=== PATIENT | male | born 1965 | race American Indian/Alaskan Native ===

== ENCOUNTER 2017-11-13 14:37 | Emergency (ER) | payer MEDICAID, OTHER ==
[2017-11-13 14:38] VITALS: BMI 29.5
[2017-11-13 14:57] VITALS: RESP 18; TEMP 99.6
[2017-11-13] MEDS ORDERED: Nitroglycerin 2% Ointment Foilpak UD TOP STA (15:07)
--- NOTE | 2017-11-13 15:12 | ED PDOC ---
Arrival/HPI - General Chief Complaint: Chest Pain Time Seen by Provider: 11/13/17 14:53 Historian: Patient - History of Present Illness Narrative History of Present Illness (Text): 11/13/17 15:09 pt p/w ~ 3 days onset of waxing/waning chest tightness/pain, upper chest all/ substernal chest region; non-radiating pain, at most pain is 7/10; + sob/ wheezing, + generalized weakness, + fever/chills/sweats, no palpitations, + lightheadedness/dizziness, + general limb weakness/heaviness, no abd pain, no n/ v, no numbness/tingling, no urinary/bowel changes, no fall/trauma/travel, no sick contact; pt denied rashes, no gross bleeding, no other complaints; pt is here for further eval pt denied slurr speech, pt denied vision changes pt is right hand dominate PCP: NONE Time/Duration: < week (3days) Symptom Onset: Sudden Symptom Course: Worsening Severity Level: Severe Activities at Onset: Rest Context: Home Past Medical History - Provider Review Nursing Documentation Reviewed: Yes - Travel History Have you recently traveled outside [place] w/in the past 3 mons?: No - Past History Past History: No Previous - Infectious Disease Hx of Infectious Diseases: None - Past Medical History Past Medical History: No Previous - Psychiatric Hx Depression: Yes Hx Substance Use: No - Past Surgical History Past Surgical History: No Previous - Suicidal Assessment Feels Threatened In Home Enviroment: No Family/Social History - Physician Review Nursing Documentation Reviewed: Yes Family/Social History: No Known Family HX Smoking Status: Never Smoked Hx Alcohol Use: No Hx Substance Use: No Hx Substance Use Treatment: No Allergies/Home Meds Allergies/Adverse Reactions: Allergies No Known Allergies Allergy (Verified 11/13/17 14:56) Home Medications: Home Meds Medication Instructions Recorded Confirmed No Known Home Med 11/13/17 11/13/17 Review of Systems - Review of Systems Constitutional: Fatigue, Fevers, Night Sweats Eyes: Normal ENT: Normal Respiratory: SOB Cardiovascular: Chest Pain Gastrointestinal: Normal Genitourinary Male: Normal Musculoskeletal: Normal Skin: Normal Neurological: Dizziness Endocrine: Normal Hemo/Lymphatic: Normal Psychiatric: Normal Physical Exam Vital Signs Reviewed: Yes Vital Signs Temp Pulse Resp BP Pulse Ox 11/13/17 16:23 97 H 18 143/84 97 11/13/17 14:52 99.6 F 83 18 138/55 L 96 Temperature: Afebrile Blood Pressure: Normal Pulse: Regular Respiratory Rate: Normal Appearance: Positive for: Well-Appearing, Non-Toxic, Other (mildly uncomfortable , alert/awake, GCS = 15, oriented x 3, cooperative, NAD, respond appropriately to questions) Pain Distress: None Mental Status: Positive for: Alert and Oriented X 3 - Systems Exam Head: Present: Atraumatic, Normocephalic Pupils: Present: PERRL, Other (visual field intact b/l, no nystagmus, no photophobia, sclera anicteric) Extroacular Muscles: Present: EOMI Conjunctiva: Present: Normal Ears: Present: Normal Mouth: Present: Moist Mucous Membranes, Normal Teeth, Other (no drooling/stridor , no exudate/lesions, no dysphonia) Pharnyx: Present: Normal Nose (External): Present: Atraumatic Nose (Internal): Present: Normal Inspection Neck: Present: Normal Range of Motion, Trachea Midline, Other (intact ROM, no midline tenderness, no meningeal signs, no midline tenderness, no step off). No : MIDLINE TENDERNESS Respiratory/Chest: Present: Clear to Auscultation, Good Air Exchange, Other ( CTA b/l, no w/r/r, no accessory muscle use noted, no tachypenia, no belly retractions) Cardiovascular: Present: Regular Rate and Rhythm, Normal S1, S2. No: Murmurs Abdomen: Present: Normal Bowel Sounds, Other (well nourished male, no focal tenderness, no lang's sign, no mcburney's point tenderness, no masses/rebound/ guarding/rigidity) Back: Present: Normal Inspection. No: CVA Tenderness, Midline Tenderness Upper Extremity: Present: Normal Inspection, Normal ROM, NORMAL PULSES, Neurovascularly Intact, Capillary Refill < 2s. No: Edema Lower Extremity: Present: Normal Inspection, NORMAL PULSES, Normal ROM, Neurovascularly Intact, Capillary Refill < 2 s Neurological: Present: GCS=15, CN II-XII Intact, Speech Normal Skin: Present: Warm, Normal Color, Other (Cap refill ~ 1sec, no ulcerations, no petechiae, no rashes) Psychiatric: Present: Alert, Oriented x 3 Medical Decision Making ED Course and Treatment: 1500 Impression: chest pain, r/o acs i have consider all the differential diagnosis regarding pt's chief medical complaints/clinical findings, including but are not limited to: chest pain, r/o acs A/P: chest pain, r/o acs; general weakness - labs - iv - acs eval - xray - observe - supportive care 11/13/2017 16:10 Chest X-ray IMPRESSION: No active pulmonary disease. Dictator: Sejal Rodriguez MD 11/13/17 16:32 pt is currently comfortable given pt's symptoms/complaints, will recommend patient for admission for r/o acs pt however cant wait for the rest of his labs to return and does not want to stay as per my recommendation pt states he has at home chores he needs to attend to pt states he will come back however pt currently would like to leave AMA pt is aware that by leaving against medical advice potential life-threatening illness remains and pt can lose limb/or worse case, can pt is encouraged to see his doctor immediately pt is aware that if he changes his mind, he is encouraged to return to ED immediately for further care/management pt expressed understanding Re-evaluation Time: 16:20 Reassessment Condition: Improving,but remains with symptoms - Lab Interpretations Lab Results: 11/13/17 15:00 11/13/17 15:00 Lab Results 11/13/17 15:00: TSH 3rd Generation 0.53 11/13/17 15:00: Sodium 142, Potassium 4.1, Chloride 103, Carbon Dioxide 28, Anion Gap 14, BUN 16, Creatinine 1.3, Est GFR ( Amer) > 60, Est GFR (Non- Af Amer) 58, Random Glucose 127 H, Calcium 9.4, Magnesium 2.0, Total Bilirubin 0.6, AST 37, ALT 31, Alkaline Phosphatase 67, Lactate Dehydrogenase 546, Total Creatine Kinase 399 H, CK-MB (CK-2) 1.2, CK-MB (CK-2) % Cancelled, Troponin I < 0.01, NT-Pro-B Natriuret Pep 49.7, Total Protein 7.6, Albumin 4.2, Globulin 3.4 , Albumin/Globulin Ratio 1.3 11/13/17 15:00: WBC 5.1, RBC 3.84, Hgb 9.3 L, Hct 30.3 L, MCV 78.9 L, MCH 24.2 L , MCHC 30.7 L, RDW 15.6 H, Plt Count 299, MPV 9.5, Gran % 55.9, Lymph % (Auto) 22.7, [place] % (Auto) 20.2 H, Eos % (Auto) 0.6 L, Baso % (Auto) 0.6, Gran # 2.86, Lymph # (Auto) 1.2, [place] # (Auto) 1.0 H, Eos # (Auto) 0.0, Baso # (Auto) 0.03, Neutrophils % (Manual) 64, Lymphocytes % (Manual) 18 L, Monocytes % (Manual) 14 H, Eosinophils % (Manual) 4 H, Anisocytosis (manual) Slight I have reviewed the lab results: Yes Interpretation: Abnormal lab values (decr H/H; mildly elevated CK) - RAD Interpretation Narrative RAD Interpretations (Text): 11/13/17 16:37 TECHNIQUE: Chest PA and lateral FINDINGS: LINES AND TUBES: None. LUNG AND PLEURA: The lungs are well inflated and clear. HEART AND MEDIASTINUM: The heart is not enlarged. The hilar and mediastinal contours are within normal limits. SKELETAL STRUCTURES: The bony structures are within normal limits for the patient's age. VISUALIZED UPPER ABDOMEN: Normal. OTHER FINDINGS: None. IMPRESSION: No active pulmonary disease. Radiology Orders: 11/13/17 15:07 CHEST TWO VIEWS (PA/LAT) [RAD] [employer] Specialist Sales: Radiologist - EKG Interpretation EKG Interpretation (Text): 11/13/17 16:16 NSR at 85 bpm, LAD, no ectopy, inverted T in leads III, no ST changes, ABNL EKG ; no old ekg to compare with Interpreted by ED Physician: Yes Type: 12 lead EKG Comparison: No previous EKG avail. - Medication Orders Current Medication Orders: Discontinued Medications Aspirin (Aspirin) 325 mg PO STAT STA Stop: 11/13/17 15:08 Last Admin: 11/13/17 15:36 Dose: 325 mg Nitroglycerin (Nitro-Bid 2% Oint) 1 ea TOP STAT STA Stop: 11/13/17 15:08 Last Admin: 11/13/17 15:36 Dose: 1 ea Disposition/Present on Arrival - Present on Arrival Any Indicators Present on Arrival: No History of DVT/PE: No History of Uncontrolled Diabetes: No Urinary Catheter: No History of Decub. Ulcer: No History Surgical Site Infection Following: None - Disposition Have Diagnosis and Disposition been Completed?: Yes Diagnosis: Chest pain of uncertain etiology, Weakness Disposition: AGAINST MEDICAL ADVICE Disposition Time: 16:38 Patient Plan: Discharge (AGAINST MEDICAL ADVICE) Condition: STABLE Discharge Instructions (ExitCare): Chest Pain (ED), Weakness (ED) Print Language: TURKISH Additional Instructions: you are leaving against medical advice potential life-threatening illness remains and pt can lose limb/or worse case, can you are to see your doctor as soon as possible if you change your mind, you are encouraged to return to ED immediately for further care/management Referrals: Lydia Marrero, [Primary Care Provider] - [place] up [place] [facility] [place] [facility] [place] - Follow up with primary Forms: [employer] (Swedish)
[2017-11-13 15:25] LABS: BASO # 0.03 K/mm3 (0.0-2.0); BASO % 0.6 % (0.0-3.0); EOS % 0.6 % (1.5-5.0); GRAN # 2.86 (1.4-6.5); GRAN % 55.9 % (50.0-68.0); HEMOGLOBIN 9.3 g/dL (14.0-18.0); LYMPH # 1.2 (1.2-3.4); LYMPH % 22.7 % (22.0-35.0); MEAN CELL VOLUME 78.9 fl (80.0-105.0); MEAN CORPUSCULAR HEMOGLOBIN 24.2 pg (25.0-35.0); MEAN CORPUSCULAR HGB CONC 30.7 g/dl (31.0-37.0); MEAN PLATELET VOLUME 9.5 fl (7.0-11.0); MONO % 20.2 % (1.0-6.0); PLATELET COUNT 299 10^3/uL (120.0-450.0); RBC 3.84 10^6/uL (3.5-6.1); RED CELL DISTRIBUTION WIDTH 15.6 % (11.5-14.5); WHITE BLOOD COUNT 5.1 10^3/ul (4.5-11.0)
[2017-11-13 15:34] LABS: ALB/GLOB RATIO 1.3 (1.1-1.8); ALBUMIN 4.2 g/dL (3.0-4.8); ALT/SGPT 31 U/L (7-56); AST/SGOT 37 U/L (17-59); BLOOD UREA NITROGEN 16 mg/dL (7-21); CALCIUM 9.4 mg/dL (8.4-10.5); GFR AFRICAN-AMERICAN > 60; GFR NON-AFRICAN AMERICAN 58
[2017-11-13 15:45] LABS: B-TYPE NATRIURETIC PEPTIDE 49.7 pg/mL (0-450); TROPONIN I < 0.01 ng/mL
[2017-11-13 15:50] LABS: CK-MB 1.2 ng/mL (0.0-3.6)
[2017-11-13 15:59] LABS: EOSINOPHIL 4 % (0.0-3.0); LYMPHOCYTE 18 % (22.0-35.0); MONOCYTE 14 % (1.0-6.0); NEUTROPHIL 64 % (50.0-70.0)
[2017-11-13 16:00] LABS: ANISOCYTOSIS SLIGHT
[2017-11-13 16:24] VITALS: BP 143/84; PULSE 97; O2SAT 97
[2017-11-14 08:30] LABS: PH,URINE 6.5 (4.7-8.0); URINE BILIRUBIN NEGATIVE (NEGATIVE); URINE BLOOD NEGATIVE (NEGATIVE); URINE GLUCOSE (UA) NEGATIVE (NEGATIVE); URINE LEUKOCYTE ESTERASE TRACE Leu/uL (NEGATIVE); URINE NITRATE NEGATIVE (NEGATIVE); URINE PROTEIN NEGATIVE mg/dL (<30 mg/dL); URINE UROBILINOGEN 0.2 E.U./dL (<1 E.U./dL)
[2017-11-14 08:34] LABS: URINE APPEARANCE SLIGHT-CLOUDY (CLEAR); URINE COLOR DARK YELLOW (YELLOW)
[2017-11-14 08:41] LABS: BARBITURATES, UR NEGATIVE (NEGATIVE); BENZODIAZEPINES, UR NEGATIVE (NEGATIVE); OPIATES, UR NEGATIVE (NEGATIVE); PHENCYCLIDINE, UR NEGATIVE (NEGATIVE)
[2017-11-14 08:44] LABS: URINE EPITHELIAL CELLS 0 - 2 /hpf (0-5); URINE RBC NEGATIVE /hpf (0-2)
--- NOTE | 2017-11-14 09:13 | CARD ---
APPROVED REPORT EKG Measurement Heart [id number] <Conclusion> Normal sinus rhythm Left axis deviation Abnormal ECG
== END 2017-11-13 17:06 | disposition left against medical advice (07) ==
LOC: ED 14:37
DX: R07.9 Chest pain, unspecified (principal); R53.1 Weakness

== ENCOUNTER 2017-11-13 18:04 | Observation (INO) | payer MEDICAID, OTHER ==
[2017-11-13 18:04] VITALS: BMI 29.5
--- NOTE | 2017-11-13 18:18 | ED PDOC ---
Arrival/HPI - General Chief Complaint: Cough, Cold, Congestion Time Seen by Provider: 11/13/17 18:17 Historian: Patient - History of Present Illness Narrative History of Present Illness (Text): 11/13/17 18:30 pt p/w ~ 3 days onset of waxing/waning chest tightness/pain, upper chest all/ substernal chest region; non-radiating pain, at most pain is 7/10; + sob/ wheezing, + generalized weakness, + fever/chills/sweats, no palpitations, + lightheadedness/dizziness, + general limb weakness/heaviness, no abd pain, no n/ v, no numbness/tingling, no urinary/bowel changes, no fall/trauma/travel, no sick contact; pt denied rashes, no gross bleeding, no other complaints; pt is here for further eval pt denied slurr speech, pt denied vision changes pt is right hand dominate pt was evaluated ~ 3 hours ago by me here at [facility], pt was recommended for admission/observation but left AMA due to at home circumstance pt return to ED with no changes in his symptoms, except now with some frontal headaches PCP: NONE Time/Duration: < week (3 days) Symptom Onset: Sudden Symptom Course: Worsening Quality: Tightness Severity Level: 7, Severe Activities at Onset: Rest Context: Home Past Medical History - Provider Review Nursing Documentation Reviewed: Yes - Travel History Have you recently traveled outside [place] w/in the past 3 mons?: No - Past History Past History: No Previous - Infectious Disease Hx of Infectious Diseases: None - Past Medical History Past Medical History: No Previous - Psychiatric Hx Depression: Yes Hx Substance Use: No - Past Surgical History Past Surgical History: No Previous - Anesthesia Hx Anesthesia: No - Suicidal Assessment Feels Threatened In Home Enviroment: No Family/Social History - Physician Review Nursing Documentation Reviewed: Yes Family/Social History: No Known Family HX Smoking Status: Former Smoker Hx Alcohol Use: No (quit years ago) Hx Substance Use: No Hx Substance Use Treatment: No Allergies/Home Meds Allergies/Adverse Reactions: Allergies No Known Allergies Allergy (Verified 11/13/17 18:17) Home Medications: Home Meds Medication Instructions Recorded Confirmed No Known Home Med 11/13/17 11/13/17 Review of Systems - Review of Systems Constitutional: Fatigue, Fevers, Night Sweats Eyes: Normal ENT: Normal Respiratory: SOB Cardiovascular: Chest Pain. absent: Palpitations, Syncope Gastrointestinal: Normal Genitourinary Male: Normal Musculoskeletal: Normal Skin: Normal Neurological: Headache, Dizziness Endocrine: Diaphoresis. absent: Polyuria, Polydipsia Hemo/Lymphatic: Normal Psychiatric: Normal Physical Exam Vital Signs Reviewed: Yes Vital Signs Temp Pulse Resp BP Pulse Ox 11/13/17 19:46 60 18 121/69 98 11/13/17 18:13 989.5 F H 66 18 113/75 98 Temperature: Afebrile Blood Pressure: Normal Pulse: Regular Respiratory Rate: Normal Appearance: Positive for: Well-Appearing, Uncomfortable, Other (resting in bed, alert/awake, cooperative, NAD). No: Non-Toxic Pain Distress: None Mental Status: Positive for: Alert and Oriented X 3 - Systems Exam Head: Present: Atraumatic, Normocephalic Pupils: Present: PERRL Extroacular Muscles: Present: EOMI Conjunctiva: Present: Normal Ears: Present: Normal Mouth: Present: Moist Mucous Membranes, Normal Teeth Pharnyx: Present: Normal, Other (uvula/meron are midline, no exudate/lesions, no drooling/stridor, intact dentitions) Nose (External): Present: Atraumatic Nose (Internal): Present: Normal Inspection, Clear Mucous. No: Rhinorrhea Neck: Present: Normal Range of Motion, Trachea Midline, Other (no nuchal rigidity noted, no meningeal signs, no step off, no midline tenderness). No: MIDLINE TENDERNESS Respiratory/Chest: Present: Clear to Auscultation, Good Air Exchange, Other ( CTA b/l, no w/r/r, no accessory muscle use noted, no tachypenia). No: Respiratory Distress Cardiovascular: Present: Regular Rate and Rhythm, Normal S1, S2. No: Murmurs, Tachycardic Abdomen: Present: Normal Bowel Sounds, Other (well nourished male, no focal tenderness, no masses/rebound/guarding/rigidity, no lang's sign, no mcburney' s point tenderness) Upper Extremity: Present: Normal Inspection, Normal ROM, NORMAL PULSES, Neurovascularly Intact, Capillary Refill < 2s Lower Extremity: Present: Normal Inspection, NORMAL PULSES, Normal ROM, Neurovascularly Intact, Capillary Refill < 2 s, Other (+ ambulatory). No: Edema , Kristin's Sign Neurological: Present: GCS=15, CN II-XII Intact, Speech Normal Skin: Present: Warm, Normal Color, Other (cap refill ~ 1 sec, no ulcerations, no petechiae, no pallor) Psychiatric: Present: Alert, Oriented x 3 Medical Decision Making ED Course and Treatment: 11/13/17 18:30 Impression: chest pain/sob; general weakness i have consider all the differential diagnosis regarding pt's chief medical complaints/clinical findings, including but are not limited to: chest pain, r/o acs; ? infectious? A/P: chest pain, r/o acs; general weakness - ekg - trop - observe - supportive care 11/13/17 18:35 pt is currently chest pain free 11/13/17 18:40 pt is made aware of his medical results pt is agreeable with admission/observation I spoke to Dr Solo, hospitalists rn occupational, made aware, agrees with admission/ observation Re-evaluation Time: 19:35 Reassessment Condition: Improving,but remains with symptoms - Lab Interpretations I have reviewed the lab results: Yes Interpretation: All labs normal - EKG Interpretation EKG Interpretation (Text): 11/13/17 19:48 NSR at 60 bpm, LAD, no ectopy, inverted T in leads III, no st changes, ABNL EKG ; no gross changes compare with old ekg Interpreted by ED Physician: Yes Type: 12 lead EKG Comparison: Similar to previous EKG - Medication Orders Current Medication Orders: Acetaminophen (Tylenol 325mg Tab) 650 mg PO Q4H PRN PRN Reason: Pain, Mild (1-3) Aspirin (Aspirin Chewable) 81 mg PO DAILY [facility] Heparin Sodium (Porcine) (Heparin) 5,000 units SC Q12 ERNA PRN Reason: Protocol Sodium Chloride (Sodium Chloride 0.9%) 1,000 mls @ 100 mls/hr IV .Q10H [facility] Ondansetron HCl (Zofran Inj) 4 mg IVP Q4H PRN PRN Reason: Nausea/Vomiting Pantoprazole Sodium (Protonix Ec Tab) 40 mg PO 0600 ERNA Discontinued Medications Acetaminophen (Tylenol 325mg Tab) 650 mg PO ONCE ONE Stop: 11/13/17 18:34 Last Admin: 11/13/17 18:51 Dose: 650 mg MAR Pain/Vitals Document 11/13/17 18:51 RAHEEM (Rec: 11/13/17 18:52 RAHEEM [id number]) Pain Reassessment Is This A Pain ReAssessment? Yes Presence of Pain Presence of Pain Yes Pain Scale Used Pain Scale Used Numeric Location Pain Location Body Site BODILY ACHES Intensity 4 Scale Used Numeric Disposition/Present on Arrival - Present on Arrival Any Indicators Present on Arrival: No History of DVT/PE: No History of Uncontrolled Diabetes: No Urinary Catheter: No History of Decub. Ulcer: No History Surgical Site Infection Following: None - Disposition Have Diagnosis and Disposition been Completed?: Yes Diagnosis: Chest pain with low risk for cardiac etiology, Weakness generalized Disposition: HOSPITALIZED Disposition Time: 19:00 Patient Plan: Admission, Observation Patient Problems: Current Active Problems Problem Status Onset Weakness Acute Chest pain with low risk for cardiac etiology Acute Condition: STABLE
--- NOTE | 2017-11-13 19:28 | CP.PCM.HP ---
<Efrain Mesa - Last Filed: 11/13/17 19:21> History of Present Illness - History of Present Illness History of Present Illness: 52 year old male with no significant past medical history presents to the ED for cough and congestion for the past 3 days. Patient states symptoms started 3 days ago have gotten progressively worse. Patient states cough was productive initially, but is now dry. Patient states he also has intermittent chest pain, only when coughing. Patient does become severe at times, but resolves after coughing. Pain is nonradiating and substernal. Pain is characterized as a tight sensation while coughing. Patient has not taken any medications at home for his symptoms. He does admit to subjective fever, myalgias, and chills. He does not have a PMD. Denies current chest pain, shortness of breath, nausea, vomiting, diarrhea, syncope, changes in vision. PMH: None Surgical history: None Family medical history: Noncontributory Social history: Denies alcohol, tobacco, or illicit drug use. Works in a [employer] Allergies: NKDA Medications: None Present on Admission - Present on Admission Any Indicators Present on Admission: No Review of Systems - Review of Systems Review of Systems: 12 point ROS as per HPI, otherwise negative Past Patient History - Infectious Disease Hx of Infectious Diseases: None - Past Social History Smoking Status: Former Smoker - PSYCHIATRIC Hx Depression: Yes Hx Substance Use: No - SURGICAL HISTORY Hx Surgeries: No - ANESTHESIA Hx Anesthesia: No Meds Allergies/Adverse Reactions: Allergies Allergy/AdvReac Type Severity Reaction Status Date / Time No Known Allergies Allergy Verified 11/13/17 18:17 Physical Exam - Constitutional Appears: Non-toxic, No Acute Distress - Head Exam Head Exam: ATRAUMATIC, NORMAL INSPECTION, NORMOCEPHALIC - Eye Exam Eye Exam: EOMI, Normal appearance - ENT Exam ENT Exam: Mucous Membranes Moist, Normal Exam - Neck Exam Neck exam: Positive for: Normal Inspection. Negative for: Lymphadenopathy - Respiratory Exam Respiratory Exam: Decreased Breath Sounds, NORMAL BREATHING PATTERN. absent: Rales, Rhonchi, Wheezes - Cardiovascular Exam Cardiovascular Exam: RRR, +S1, +S2 - GI/Abdominal Exam GI & Abdominal Exam: Soft. absent: Normal Bowel Sounds, Tenderness - Extremities Exam Extremities exam: Positive for: normal inspection. Negative for: calf tenderness, pedal edema - Neurological Exam Neurological exam: Alert, CN II-XII Intact, Oriented x3 - Psychiatric Exam Psychiatric exam: Normal Affect, Normal Mood - Skin Skin Exam: Dry, Intact, Normal Color Results - Vital Signs Recent Vital Signs: Last Vital Signs Temp 989.5 F H 11/13/17 18:13 Pulse 66 11/13/17 18:13 Resp 18 11/13/17 18:13 BP 113/75 11/13/17 18:13 Pulse Ox 98 11/13/17 18:13 Assessment & Plan - Assessment and Plan (Free Text) Plan: 52 year old male presenting to the ED for Chest pain rule out ACS. Chest pain rule out ACS Cardiology consult, Dr. Gallardo Trend troponins Heart healthy diet ASA daily Tylenol for pain Urine drug screen UA pending Consider echocardiogram or outpatient stress test Elevated CK Will give Normal saline overnight Recheck CK in AM Microcytic anemia Iron, TIBC, Transferrin, ferritin ordered Monitor for signs of bleeding Prophylaxis Heparin Zofran Protonix Moshe, PGY-2 <Augusto Rodriguez - Last Filed: 11/14/17 07:10> Results - Vital Signs Recent Vital Signs: Last Vital Signs Temp 98.5 F 11/14/17 06:00 Pulse 54 L 11/14/17 06:00 Resp 20 11/14/17 06:00 BP 115/75 11/14/17 06:00 Pulse Ox 94 L 11/14/17 06:00 - Labs Result Diagrams: 11/14/17 05:10 11/14/17 05:10 Labs: Laboratory Results - last 24 hr 11/13/17 11/13/17 11/13/17 18:48 18:48 18:48 WBC RBC Hgb Hct MCV MCH MCHC RDW Plt Count MPV Gran % Lymph % (Auto) [place] % (Auto) Eos % (Auto) Baso % (Auto) Gran # Lymph # (Auto) [place] # (Auto) Eos # (Auto) Baso # (Auto) Sodium Potassium Chloride Carbon Dioxide Anion Gap BUN Creatinine Est GFR ( Amer) Est GFR (Non-Af Amer) Random Glucose Calcium Phosphorus 3.8 Magnesium 2.0 Iron TIBC % Saturation Total Bilirubin AST ALT Alkaline Phosphatase Total Creatine Kinase CK-MB (CK-2) CK-MB (CK-2) % Troponin I < 0.01 Total Protein Albumin Globulin Albumin/Globulin Ratio Triglycerides 54 Cholesterol 146 LDL Cholesterol Direct 74 HDL Cholesterol 43 Influenza Typ A,B (EIA) Negative for flu a/b 11/13/17 11/14/17 11/14/17 18:48 01:40 05:10 WBC RBC Hgb Hct MCV MCH MCHC RDW Plt Count MPV Gran % Lymph % (Auto) [place] % (Auto) Eos % (Auto) Baso % (Auto) Gran # Lymph # (Auto) [place] # (Auto) Eos # (Auto) Baso # (Auto) Sodium 141 Potassium 4.0 Chloride 105 Carbon Dioxide 28 Anion Gap 12 BUN 19 Creatinine 1.1 Est GFR ( Amer) > 60 Est GFR (Non-Af Amer) > 60 Random Glucose 103 Calcium 9.0 Phosphorus Magnesium Iron 53 TIBC 401 % Saturation 13 L Total Bilirubin 0.5 AST 33 ALT 29 Alkaline Phosphatase 59 Total Creatine Kinase 261 H CK-MB (CK-2) 0.9 CK-MB (CK-2) % Cancelled Troponin I < 0.01 < 0.01 Total Protein 6.8 Albumin 3.6 Globulin 3.3 Albumin/Globulin Ratio 1.1 Triglycerides Cholesterol LDL Cholesterol Direct HDL Cholesterol Influenza Typ A,B (EIA) 11/14/17 05:10 WBC 4.0 L D RBC 3.58 Hgb 8.5 L Hct 28.3 L MCV 79.1 L MCH 23.7 L MCHC 30.0 L RDW 15.6 H Plt Count 264 MPV 9.3 Gran % 28.9 L Lymph % (Auto) 46.4 H [place] % (Auto) 20.7 H Eos % (Auto) 3.5 Baso % (Auto) 0.5 Gran # 1.16 L Lymph # (Auto) 1.9 [place] # (Auto) 0.8 H Eos # (Auto) 0.1 Baso # (Auto) 0.02 Sodium Potassium Chloride Carbon Dioxide Anion Gap BUN Creatinine Est GFR ( Amer) Est GFR (Non-Af Amer) Random Glucose Calcium Phosphorus Magnesium Iron TIBC % Saturation Total Bilirubin AST ALT Alkaline Phosphatase Total Creatine Kinase CK-MB (CK-2) CK-MB (CK-2) % Troponin I Total Protein Albumin Globulin Albumin/Globulin Ratio Triglycerides Cholesterol LDL Cholesterol Direct HDL Cholesterol Influenza Typ A,B (EIA) Attending/Attestation - Attestation I have personally seen and examined this patient.: Yes I have fully participated in the care of the patient.: Yes I have reviewed all pertinent clinical information: Yes Notes (Text): 11/14/17 07:09 Patient was seen when he was in Room # 12 in the ER. Agree with history, physical examination, assessment and plan.
[2017-11-13] MEDS: Sodium Chloride 0.9% 1,000 ML IV SCH (19:50)
[2017-11-13 19:56] LABS: IRON 53 ug/dL (45-180)
[2017-11-13 20:05] LABS: % IRON SATURATION 13 % (20-55); TOTAL IRON BINDING CAPACITY 401 ug/dL (261-462)
[2017-11-14 00:02] VITALS: RESP 20
[2017-11-14] MEDS: Sodium Chloride 0.9% 1,000 ML IV SCH (05:06)
[2017-11-14] MEDS ORDERED: Pantoprazole 40 mg EC Tab PO SCH (06:00)
[2017-11-14 06:12] LABS: BASO # 0.02 K/mm3 (0.0-2.0); BASO % 0.5 % (0.0-3.0); EOS # 0.1 (0.0-0.7); EOS % 3.5 % (1.5-5.0); GRAN # 1.16 (1.4-6.5); GRAN % 28.9 % (50.0-68.0); HEMOGLOBIN 8.5 g/dL (14.0-18.0); LYMPH # 1.9 (1.2-3.4); LYMPH % 46.4 % (22.0-35.0); MEAN CELL VOLUME 79.1 fl (80.0-105.0); MEAN CORPUSCULAR HEMOGLOBIN 23.7 pg (25.0-35.0); MEAN PLATELET VOLUME 9.3 fl (7.0-11.0); MONO # 0.8 (0.1-0.6); MONO % 20.7 % (1.0-6.0); RBC 3.58 10^6/uL (3.5-6.1); RED CELL DISTRIBUTION WIDTH 15.6 % (11.5-14.5)
[2017-11-14 06:39] VITALS: O2SAT 94
[2017-11-14 06:39] LABS: ALB/GLOB RATIO 1.1 (1.1-1.8); ALBUMIN 3.6 g/dL (3.0-4.8); ALT/SGPT 29 U/L (7-56); AST/SGOT 33 U/L (17-59); BLOOD UREA NITROGEN 19 mg/dL (7-21); GFR AFRICAN-AMERICAN > 60; GFR NON-AFRICAN AMERICAN > 60
[2017-11-14 06:43] LABS: TROPONIN I < 0.01 ng/mL
[2017-11-14 06:55] LABS: CK-MB 0.9 ng/mL (0.0-3.6)
[2017-11-14] MEDS ORDERED: Nitroglycerin 2% Ointment Foilpak UD TOP PRN (08:12)
[2017-11-14] MEDS ORDERED: Barium Sulfate Susp 2.1% w/v, 2.0% w/w 450 mL Bottle PO ONE (08:49)
--- NOTE | 2017-11-14 08:59 | CP.PCM.DIS ---
<HenrryRuma - Last Filed: 11/14/17 08:52> Provider - Provider Date of Admission: 11/13/17 18:38 Attending physician: Jeison Solo MD Primary care physician: NO PRIMARY CARE PROVIDER Time Spent in preparation of Discharge (in minutes): 35 Hospital Course - Lab Results Lab Results: Most Recent Lab Values WBC 4.0 10^3/ul (4.5-11.0) L D 11/14/17 05:10 RBC 3.58 10^6/uL (3.5-6.1) 11/14/17 05:10 Hgb 8.5 g/dL (14.0-18.0) L 11/14/17 05:10 Hct 28.3 % (42.0-52.0) L 11/14/17 05:10 MCV 79.1 fl (80.0-105.0) L 11/14/17 05:10 MCH 23.7 pg (25.0-35.0) L 11/14/17 05:10 MCHC 30.0 g/dl (31.0-37.0) L 11/14/17 05:10 RDW 15.6 % (11.5-14.5) H 11/14/17 05:10 Plt Count 264 10^3/uL (120.0-450.0) 11/14/17 05:10 MPV 9.3 fl (7.0-11.0) 11/14/17 05:10 Gran % 28.9 % (50.0-68.0) L 11/14/17 05:10 Lymph % (Auto) 46.4 % (22.0-35.0) H 11/14/17 05:10 [place] % (Auto) 20.7 % (1.0-6.0) H 11/14/17 05:10 Eos % (Auto) 3.5 % (1.5-5.0) 11/14/17 05:10 Baso % (Auto) 0.5 % (0.0-3.0) 11/14/17 05:10 Gran # 1.16 (1.4-6.5) L 11/14/17 05:10 Lymph # (Auto) 1.9 (1.2-3.4) 11/14/17 05:10 [place] # (Auto) 0.8 (0.1-0.6) H 11/14/17 05:10 Eos # (Auto) 0.1 (0.0-0.7) 11/14/17 05:10 Baso # (Auto) 0.02 K/mm3 (0.0-2.0) 11/14/17 05:10 Sodium 141 mmol/L (132-148) 11/14/17 05:10 Potassium 4.0 mmol/L (3.6-5.0) 11/14/17 05:10 Chloride 105 mmol/L (98-107) 11/14/17 05:10 Carbon Dioxide 28 mmol/L (21-33) 11/14/17 05:10 Anion Gap 12 (10-20) 11/14/17 05:10 BUN 19 mg/dL (7-21) 11/14/17 05:10 Creatinine 1.1 mg/dl (0.8-1.5) 11/14/17 05:10 Est GFR ( Amer) > 60 11/14/17 05:10 Est GFR (Non-Af Amer) > 60 11/14/17 05:10 Random Glucose 103 mg/dL (70-110) 11/14/17 05:10 Calcium 9.0 mg/dL (8.4-10.5) 11/14/17 05:10 Phosphorus 3.8 mg/dL (2.5-4.5) 11/13/17 18:48 Magnesium 2.0 mg/dL (1.7-2.2) 11/13/17 18:48 Iron 53 ug/dL (45-180) 11/13/17 18:48 TIBC 401 ug/dL (261-462) 11/13/17 18:48 % Saturation 13 % (20-55) L 11/13/17 18:48 Total Bilirubin 0.5 mg/dL (0.2-1.3) 11/14/17 05:10 AST 33 U/L (17-59) 11/14/17 05:10 ALT 29 U/L (7-56) 11/14/17 05:10 Alkaline Phosphatase 59 U/L (38-126) 11/14/17 05:10 Total Creatine Kinase 261 U/L (35-230) H 11/14/17 05:10 CK-MB (CK-2) 0.9 ng/mL (0.0-3.6) 11/14/17 05:10 CK-MB (CK-2) % Cancelled 11/14/17 05:10 Troponin I < 0.01 ng/mL 11/14/17 05:10 Total Protein 6.8 g/dL (5.8-8.3) 11/14/17 05:10 Albumin 3.6 g/dL (3.0-4.8) 11/14/17 05:10 Globulin 3.3 gm/dL 11/14/17 05:10 Albumin/Globulin Ratio 1.1 (1.1-1.8) 11/14/17 05:10 Triglycerides 54 mg/dL (35-160) 11/13/17 18:48 Cholesterol 146 mg/dL (130-200) 11/13/17 18:48 LDL Cholesterol Direct 74 mg/dL (0-129) 11/13/17 18:48 HDL Cholesterol 43 mg/dL (29-60) 11/13/17 18:48 Influenza Typ A,B (EIA) Negative for flu a/b (NEGATIVE) 11/13/17 18:48 - Hospital Course Hospital Course: This is a 52yo male with no significant past medical or family history here for chest pain x 3 days. He reports he has been having chest pain when he coughs. He noted to have congestion scant green mucus for 3 days which has now resolved. He reports the chest pain has improved. He is able to walk several blocks and up multiple flights of stairs without dyspnea. EKG showed NSR and CXR showed no active disease. Troponin was negative x 3 with a normal cholesterol panel and TSH. Cardiology was consulted and recommend outpatient stress test. Patient was also found to have anemia. He states that sometimes he sees scant blood in his stool and has never had a colonoscopy. He does not take any medications including NSAIDs and does not have a PMD. Patient was given IV Venofer. CT abdomen pelvis is ordered to rule out any GI etiology. If CT negative, patient will be d/c home with PO Iron for 4 weeks. It is recommended that [place] [facility] [place] and outpatient colonoscopy. - Date & Time of H&P Date of H&P: 11/13/17 Time of H&P: 19:00 Discharge Exam - Head Exam Head Exam: ATRAUMATIC, NORMAL INSPECTION, NORMOCEPHALIC - Eye Exam Eye Exam: Normal appearance, PERRL Pupil Exam: NORMAL ACCOMODATION - ENT Exam ENT Exam: Mucous Membranes Moist - Respiratory Exam Respiratory Exam: Clear to PA & Lateral, NORMAL BREATHING PATTERN, UNREMARKABLE - Cardiovascular Exam Cardiovascular Exam: REGULAR RHYTHM, +S1, +S2. absent: Gallop, Rubs, Systolic Murmur - GI/Abdominal Exam GI & Abdominal Exam: Normal Bowel Sounds, Soft, Unremarkable. absent: Mass, Rebound, Rigid, Tenderness - Extremities Exam Extremities exam: normal inspection - Neurological Exam Neurological exam: Alert, CN II-XII Intact, Oriented x3 - Psychiatric Exam Psychiatric exam: Normal Affect, Normal Mood - Skin Skin Exam: Dry, Intact, Warm Discharge Plan - Discharge Medications Prescriptions: Ferrous Sulfate [Feosol] 324 mg PO TID #120 ect - Follow Up Plan Condition: STABLE Disposition: HOME/ ROUTINE Instructions: Fatigue (DC), Generalized Weakness (DC), Quitting Smokeless Tobacco, Drugs to Help You Stop Using Tobacco Additional Instructions: 1. Take Iron pills 3 times per day for 4 weeks. - Iron can make your stool look dark in color and cause constipation - Recommend drinking plenty of water - If constipated, recommend taking over the counter Miralax. 2. Follow up [place] [facility] [place] [facility] for repeat CBC to see if anemia improved. 3. Schedule outpatient cardiac stress test with Dr. Gallardo 4. Recommend screening outpatient colonoscopy. 5. If symptoms worsen please go to the nearest emergency room. Referrals: [facility] [place] [facility] [place] PCP,NO [Primary Care Provider] - <Jeison Solo - Last Filed: 11/14/17 15:53> Provider - Provider Date of Admission: 11/13/17 18:38 Attending physician: Jeison Solo MD Primary care physician: NO PRIMARY CARE PROVIDER Hospital Course - Lab Results Lab Results: Most Recent Lab Values WBC 4.0 10^3/ul (4.5-11.0) L D 11/14/17 05:10 RBC 3.58 10^6/uL (3.5-6.1) 11/14/17 05:10 Hgb 8.5 g/dL (14.0-18.0) L 11/14/17 05:10 Hct 28.3 % (42.0-52.0) L 11/14/17 05:10 MCV 79.1 fl (80.0-105.0) L 11/14/17 05:10 MCH 23.7 pg (25.0-35.0) L 11/14/17 05:10 MCHC 30.0 g/dl (31.0-37.0) L 11/14/17 05:10 RDW 15.6 % (11.5-14.5) H 11/14/17 05:10 Plt Count 264 10^3/uL (120.0-450.0) 11/14/17 05:10 MPV 9.3 fl (7.0-11.0) 11/14/17 05:10 Gran % 28.9 % (50.0-68.0) L 11/14/17 05:10 Lymph % (Auto) 46.4 % (22.0-35.0) H 11/14/17 05:10 [place] % (Auto) 20.7 % (1.0-6.0) H 11/14/17 05:10 Eos % (Auto) 3.5 % (1.5-5.0) 11/14/17 05:10 Baso % (Auto) 0.5 % (0.0-3.0) 11/14/17 05:10 Gran # 1.16 (1.4-6.5) L 11/14/17 05:10 Lymph # (Auto) 1.9 (1.2-3.4) 11/14/17 05:10 [place] # (Auto) 0.8 (0.1-0.6) H 11/14/17 05:10 Eos # (Auto) 0.1 (0.0-0.7) 11/14/17 05:10 Baso # (Auto) 0.02 K/mm3 (0.0-2.0) 11/14/17 05:10 Sodium 141 mmol/L (132-148) 11/14/17 05:10 Potassium 4.0 mmol/L (3.6-5.0) 11/14/17 05:10 Chloride 105 mmol/L (98-107) 11/14/17 05:10 Carbon Dioxide 28 mmol/L (21-33) 11/14/17 05:10 Anion Gap 12 (10-20) 11/14/17 05:10 BUN 19 mg/dL (7-21) 11/14/17 05:10 Creatinine 1.1 mg/dl (0.8-1.5) 11/14/17 05:10 Est GFR ( Amer) > 60 11/14/17 05:10 Est GFR (Non-Af Amer) > 60 11/14/17 05:10 Random Glucose 103 mg/dL (70-110) 11/14/17 05:10 Hemoglobin A1c 5.5 % (4.2-6.5) 11/13/17 18:48 Calcium 9.0 mg/dL (8.4-10.5) 11/14/17 05:10 Phosphorus 3.8 mg/dL (2.5-4.5) 11/13/17 18:48 Magnesium 2.0 mg/dL (1.7-2.2) 11/13/17 18:48 Iron 53 ug/dL (45-180) 11/13/17 18:48 TIBC 401 ug/dL (261-462) 11/13/17 18:48 % Saturation 13 % (20-55) L 11/13/17 18:48 Ferritin 9.4 ng/mL 11/13/17 18:48 Total Bilirubin 0.5 mg/dL (0.2-1.3) 11/14/17 05:10 AST 33 U/L (17-59) 11/14/17 05:10 ALT 29 U/L (7-56) 11/14/17 05:10 Alkaline Phosphatase 59 U/L (38-126) 11/14/17 05:10 Total Creatine Kinase 261 U/L (35-230) H 11/14/17 05:10 CK-MB (CK-2) 0.9 ng/mL (0.0-3.6) 11/14/17 05:10 CK-MB (CK-2) % Cancelled 11/14/17 05:10 Troponin I < 0.01 ng/mL 11/14/17 05:10 Total Protein 6.8 g/dL (5.8-8.3) 11/14/17 05:10 Albumin 3.6 g/dL (3.0-4.8) 11/14/17 05:10 Globulin 3.3 gm/dL 11/14/17 05:10 Albumin/Globulin Ratio 1.1 (1.1-1.8) 11/14/17 05:10 Triglycerides 54 mg/dL (35-160) 11/13/17 18:48 Cholesterol 146 mg/dL (130-200) 11/13/17 18:48 LDL Cholesterol Direct 74 mg/dL (0-129) 11/13/17 18:48 HDL Cholesterol 43 mg/dL (29-60) 11/13/17 18:48 Influenza Typ A,B (EIA) Negative for flu a/b (NEGATIVE) 11/13/17 18:48 Attending/Attestation - Attestation I have personally seen and examined this patient.: Yes I have fully participated in the care of the patient.: Yes I have reviewed all pertinent clinical information, including history, physical exam and plan: Yes Notes (Text): I have seen and examined the patient at bedside. Agree with the above note with the following additions/ exceptions: Briefly this is 52 year old male with no past medical history who came for evaluation of intermittent episodes of pleuritic chest pain on and off x few weeks. Patient denies any cough, phlegm production, runny nose, sneezing or post nasal drip, abdominal pain, urinary or bowel problems. Reports mild congestion however denies facial pain or tenderness. Serial ekg and trop wihin normal limits. Looks like pain is non cardiac is origin. Patient wants to be discahrged. Advised patient to have stress test as an outpatient. Upon admission, he was found to have anemia. Work up ordered which revealed iron deficiency anemia. IV venofer was given. Patient denies weight loss, back pain, hematemesis, hemoptysis, dark stools or abdominal pain. Patient reported that about a month ago he had blood in stool. He is not sure if it was bright red blood. He denies use of alcohol, street drugs or tobacco use. CT abdomen with contrast was normal. Patient will be sent home on po iron. Upon discharge patient will follow up with [facility]. Advised patient to have outpatient GI for colonoscopy and endoscopy. Dr Jeison Solo
--- NOTE | 2017-11-14 10:08 | CARD ---
APPROVED REPORT EKG Measurement Heart [id number] <Conclusion> Sinus bradycardia Left axis deviation
[2017-11-14 11:41] VITALS: BP 129/84; PULSE 60; TEMP 98.9
[2017-11-14 11:43] LABS: FERRITIN 9.4 ng/mL
--- NOTE | 2017-11-14 12:11 | CT ---
PROCEDURE: CT Abdomen and Pelvis without intravenous contrast HISTORY: anemia COMPARISON: None. TECHNIQUE: Without contrast. Contrast Dose: Radiation dose: Total exam DLP = 965 mGy-cm. This CT exam was performed using one or more of the following dose reduction techniques: Automated exposure control, adjustment of the mA and/or kV according to patient size, and/or use of iterative reconstruction technique. FINDINGS: LOWER THORAX: Unremarkable. LIVER: Unremarkable. No gross lesion or ductal dilatation. GALLBLADDER AND BILE DUCTS: Unremarkable. PANCREAS: Unremarkable. No gross lesion or ductal dilatation. SPLEEN: Unremarkable. ADRENALS: Unremarkable. No mass. KIDNEYS AND URETERS: Unremarkable. No hydronephrosis. No solid mass. VASCULATURE: Unremarkable. No aortic aneurysm. BOWEL: Unremarkable. No obstruction. No gross mural thickening. The sigmoid colon is moderately dilated and extends up to the level of the diaphragm. There is no obstructing lesion. There is a moderate amount of stool in the rectum. APPENDIX: Unremarkable. Normal appendix. PERITONEUM: Unremarkable. No free fluid. No free air. LYMPH NODES: Unremarkable. No enlarged lymph nodes. BLADDER: Unremarkable. REPRODUCTIVE: Unremarkable. BONES: No acute fracture. OTHER FINDINGS: None. IMPRESSION: No acute intra-abdominal findings
[2017-11-14] MEDS ORDERED: Influenza Vaccine 60 mcg/0.5 mL SYR (4YR UP) IM ONE (13:00)
--- NOTE | 2017-11-14 23:41 | CON ---
DATE: CARDIOLOGY CONSULTATION REASON FOR CONSULTATION: Chest discomfort. HISTORY OF PRESENT ILLNESS: The patient is 52-year-old, male who has no significant past medical history, presented because of flu-like symptoms as well as chest tightness, eating. The patient is unaware of any prior cardiac history in the past and at this time, he is chest pain free. SOCIAL HISTORY: Nonsmoker. MEDICATIONS: Aspirin 81 mg once a day, heparin 5000 units subcutaneous twice a day, Protonix 40 mg once a day, normal saline 10 mL an hour, Zofran 4 mg intravenously q.4 hours p.r.n. REVIEW OF SYSTEMS: No fever or chills. No vomiting or diarrhea. PHYSICAL EXAMINATION: GENERAL: Patient is a middle-aged male who does not appear to be in any distress. VITAL SIGNS: Blood pressure 129/84, heart rate 60, temperature 98.9, respirations 20. HEENT: Pale conjunctivae. CHEST: Minimal rhonchi. HEART: S1, S2 regular. EXTREMITIES: No edema. LABORATORY DATA: Today's hemoglobin and hematocrit is 8.5 and 28.3, white count 4.2, platelet count 164,000. SMA-7 today is within normal limits. Three sets of troponin are negative. Influenza type A and B are negative. EKG revealed sinus bradycardia at the rate of 59. Abdomen and pelvis CT scan reveals no acute intraabdominal findings. ASSESSMENT: 1. Atypical chest pain, myocardial infarction is ruled out. 2. Anemia. RECOMMENDATIONS: Continue current aspirin, subcutaneous heparin, and/or Protonix. Obtain D-dimer, PT and PTT, urine for drug screen, and an echocardiogram as well as chest x-ray. Douglas Gallardo MD
== END 2017-11-14 16:03 | disposition home or self-care (01) ==
LOC: ED 18:04 → ERH 18:38 → 2RNO 21:46
PROVIDERS: ADMIT Hospitalist; ATTEND Hospitalist
DX: R07.89 Other chest pain (principal); D64.9 Anemia, unspecified; Z87.891 Personal history of nicotine dependence
CPT/HCPCS: 36415; 74176; 80053; 80061; 81001; 82550; 82553; 82728; 83036; 83540; 83735; 84100; 84466; 84484; 85025; 85027; 87389; 87804; 90674; 93005; 99285; G0008; G0378; G0480; J1644; J1756; J7040